=== PATIENT | female | born 1960 | race African-American/Black ===

== ENCOUNTER 2017-11-04 11:07 | Day surgery (SDC) | payer OTHER ==
[~2017-11-04 11:07] MED LIST: BUPIVACAINE 0.5% (SDV) 30 ML, morphine SULFATE (PF) 8 MG, EPINEPHrine 0.3 MG, KETOROLAC... IRR; CEFAZOLIN 2 GM/50 ML (PMX) 50 ML IVPB; MIDAZOLAM 1 MG/ML 2 ML INJ
[2017-11-04] MEDS: traMADol 50 MG TAB PO (12:55)
[2017-11-04] MEDS: GABAPENTIN 300 MG CAP PO (12:55)
[2017-11-04] MEDS ORDERED: ROCURONIUM 50 MG INJ (13:10)
[2017-11-04] MEDS ORDERED: PROPOFOL 20 ML (13:10)
[2017-11-04] MEDS ORDERED: HYDROmorphONE 2 MG/ML SYG (13:10)
[2017-11-04] MEDS ORDERED: CEFAZOLIN 1 GM INJ (13:11)
[2017-11-04] MEDS ORDERED: HYDROmorphONE 1 MG/5 ML IV SYRINGE IV ×3 (13:30)
[2017-11-04] MEDS ORDERED: EPHEDrine SULFATE 50 MG/5 ML SYG IV (13:30)
[2017-11-04] MEDS ORDERED: FENTAnyl 50 MCG/ML VIAL IV ×3 (13:30)
[2017-11-04] MEDS ORDERED: MEPERIDINE 25 MG INJ IV (13:30)
[2017-11-04] MEDS ORDERED: OXYCODONE/ACETAMINOPHEN (5/325) TAB PO ×2 (13:30)
[2017-11-04] MEDS ORDERED: hydrALAzine 20 MG INJ IV (13:30)
[2017-11-04] MEDS ORDERED: METOCLOPRAMIDE 10 MG INJ IV (13:30)
[2017-11-04] MEDS ORDERED: LABETALOL HCL 20MG INJ IV (13:30)
[2017-11-04] MEDS ORDERED: DIPHENHYDRAMINE 50 MG INJ IV (13:30)
[2017-11-04] MEDS ORDERED: ONDANSETRON 4 MG INJ IV (13:30)
[2017-11-04] MEDS ORDERED: PHENYLephrine (100 MCG/ML) 5ML SYG (14:49)
[2017-11-04] MEDS ORDERED: DEXAMETHASONE 4 MG/ML 1 ML INJ (15:17)
[2017-11-04] MEDS ORDERED: METOCLOPRAMIDE 10 MG INJ (15:17)
[2017-11-04] MEDS ORDERED: ONDANSETRON 4 MG INJ (15:17)
[2017-11-04] MEDS ORDERED: KETOROLAC 30 MG INJ (15:17)
[2017-11-04] MEDS ORDERED: SUGAMMADEX SODIUM 200 MG/2 ML VIAL IV (15:17)
== END 2017-11-04 17:12 | disposition home or self-care (01) ==
LOC: SDS 11:07
DX: M25.851 Other specified joint disorders, right hip (principal); S73.101D Unspecified sprain of right hip, subsequent encounter; X58.XXXD Exposure to other specified factors, subsequent encounter; I10 Essential (primary) hypertension; J45.909 Unspecified asthma, uncomplicated
CPT/HCPCS: 29914; 73501; 73530